=== PATIENT | male | born 1970 | race Caucasian/White ===

== ENCOUNTER → 2018-09-08 | Outpatient (CLI) | payer BC ==
--- NOTE | 2018-09-08 13:16 | CT ---
EXAMINATION TYPE: CT chest w con DATE OF EXAM: 09/08/2018 COMPARISON: NONE HISTORY: abnormal findings on right lung field CT DLP: 570 mGycm. Automated Exposure Control for Dose Reduction was Utilized. TECHNIQUE: CT scan of the thorax is performed following with IV Contrast, patient injected with 100 mL of Isovue 300. FINDINGS: LUNGS: Moderate underlying emphysematous change is present. There is lobulated right upper lobe mass or neoplasm measuring 4.2 x 4.1 cm axial image 16. Along the periphery of the right upper lobe there is reticulation and groundglass opacity could reflect postobstructive atelectasis and/or edema. There is second suspicious 10 x 9 mm nodule in the right lower lobe axial image 47. Left lung is clear. No pleural effusion or pneumothorax is seen bilaterally. [id number] central peribronchial wall thickening is consistent with underlying COPD. MEDIASTINUM: There are enlarged confluent adenopathy involving the right hilum extending into the par atracheal space difficult to accurately measure due to confluent appearance with additional subcarina l involvement. This confluent adenopathy measures roughly 11 cm craniocaudal dimension near coronal i mage 41. For reference paratracheal lymph node measures 4.3 x 3.1 cm axial image 27 but this may refl ect contiguous extension of adenopathy centered right hilar level or suprahilar extension. There is s ignificant mass effect or narrowing of the draining right upper lobe main. No cardiomegaly or perica rdial effusion is seen. OTHER: There is nonspecific but suspicious right adrenal mass measuring 3.1 x 1.5 cm axial image 74. IMPRESSION: Moderate emphysematous change with strong suspicion for advanced or high stage lung neopl asm as detailed above. Case reviewed with ordering physician at time of dictation.
== END ==
LOC: RADCTMAIN 11:39
PROVIDERS: ATTEND Family Medicine
DX: J43.9 Emphysema, unspecified (principal)
CPT/HCPCS: 71260; Q9967